=== PATIENT | female | born 1995 | race Hispanic/Latino ===

== ENCOUNTER 2023-07-20 16:20 | Emergency (ER) | payer OTHER ==
[~2023-07-20] VITALS: Ht 167.6 cm; Wt 116.2 kg
[2023-07-20 17:04] VITALS: O2SAT 98
[2023-07-20] MEDS ORDERED: NAPROSYN500 MG PO (17:22)
[2023-07-20] MEDS ORDERED: ONDANSETRON ODT4 MG PO (17:22)
[2023-07-20] MEDS ORDERED: MACROBID 100 M100 MG PO (17:22)
== END 2023-07-20 17:20 | disposition left against medical advice (07) ==
LOC: FSED 16:27
DX: R10.11 Right upper quadrant pain (principal); K80.20 Calculus of gallbladder without cholecystitis without obstruction; N39.0 Urinary tract infection, site not specified; R11.0 Nausea